=== PATIENT | female | born 1980 | race Caucasian/White ===

== ENCOUNTER 2021-05-02 11:30 | Emergency (ER) | payer MEDICAID ==
[2021-05-02] MEDS ORDERED: SUMAtriptan 25 MG TABLET PO STA (11:48)
[2021-05-02] MEDS ORDERED: ONDANSETRON ODT 4 MG TABLET TL STA (12:19)
--- NOTE | 2021-05-02 12:23 | ED Physician Documentation ---
History of Present Illness - Stated complaint Stated Complaint: MIGRAINE - Chief complaint Chief Complaint: Neuro - Additonal information Additional information: 40-year-old female who is visiting the [place] for the iday pres ents with acute onset early headache with visual aura. She has a longstanding history of migraines. States that she typically will take Imitrex as an arresting medication however she has ran out and did not travel with any. There are no falls or trauma. No fevers. No history of CVA. Headache began about 15 minutes prior to arrival. She states that she does not get the resting medication promptly the headache will persist for days. 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 She has had previous arterial thrombectomy and is on Xarelto. Patient denies any falls or trauma. Patient is quite adamant that this headache is typical of her previous migraines. I did offer her in fact requested that she allow us to obtain a CT of her head but she declines at this time. Review of Systems Constitutional: denies: Fever, Chills Eyes: reports: Photophobia, Other (Visual aura photophobia). denies: Loss of vision Ears: reports: Reviewed and negative Nose: reports: Reviewed and negative Throat: reports: Reviewed and negative Cardiac: reports: Reviewed and negative Respiratory: reports: Reviewed and negative GI: reports: Nausea. denies: Abdominal Pain, Vomiting, Constipation, Diarrhea : reports: Reviewed and negative Skin: reports: Reviewed and negative Musculoskeletal: reports: Reviewed and negative PD PAST MEDICAL HISTORY - Past Medical History Past Medical History: Yes Cardiovascular: Deep vein thrombosis, Other Respiratory: Asthma Neuro: Migraines Endocrine/Autoimmune: None GI: Other PERSONNEL ASSOCIATE: None : Kidney stones Psych: Anxiety Musculoskeletal: None Derm: None - Past Surgical History Past Surgical History: Yes Cardiovascular: CABG, Vascular surgery - Present Medications Home Medications: Ambulatory Orders Medication Instructions Recorded Confirmed Aspirin [Aspirin EC] 81 mg PO DAILY 05/02/21 05/02/21 Atorvastatin [Lipitor] 0 mg ORAL DAILY 05/02/21 05/02/21 Ondansetron Odt [Zofran Odt] 4 mg TL Q6H PRN 05/02/21 05/02/21 Ondansetron Odt [Zofran] 4 mg TL Q6H PRN #10 tablet 05/02/21 Rivaroxaban [Xarelto] 20 mg PO DAILY 05/02/21 05/02/21 SUMAtriptan [Imitrex] 25 mg PO BID PRN #4 tablet 05/02/21 Sumatriptan Succinate [Imitrex] 100 mg PO DAILY PRN 05/02/21 05/02/21 - Allergies Allergies/Adverse Reactions: Allergies Allergy/AdvReac Type Severity Reaction Status Date / Time erythromycin base Allergy Cramps Verified 05/02/21 11:37 codeine AdvReac Nausea Verified 05/02/21 11:37 hydrocodone AdvReac Nausea Verified 05/02/21 11:37 - Social History Does the pt smoke?: Yes Smoking Status: Current every day smoker Does the pt drink ETOH?: No Does the pt have substance abuse?: No - Immunizations Immunizations are current?: No Immunizations: Other immun not current PD ED PE NORMAL - General General: Alert and oriented X 3, No acute distress, Well developed/nourished - HEENT HEENT: Atraumatic, EOMI, Ears normal, Moist mucous membranes, Pharynx benign - Neck Neck: Supple, no meningeal sign - Cardiac Cardiac: RRR, No murmur (Grade 2 systolic murmur left sternal border. Reports a history of VSD) - Respiratory Respiratory: No respiratory distress, Clear bilaterally - Abdomen Abdomen: Normal bowel sounds, Soft - Back Back: No CVA TTP, No spinal TTP - Derm Derm: Normal color, Warm and dry - Extremities Extremities: No deformity, No tenderness to palpate, No edema, Other (1+ peripheral pulses pedal. Warm feet without swelling. Brisk cap refill.). No: No calf tenderness / cord - Neuro Neuro: Alert and oriented X 3, silk soaker 2-12 intact, No motor deficit, No sensory deficit, Normal speech, Other (Normal gait, finger-nose and heel toe) Eye Opening: Spontaneous Motor: Obeys Commands Verbal: Oriented GCS Score: 15 Results - Vitals Vitals: Vital Signs - 24 hr 05/02/21 11:37 Temperature 36.9 C Heart Rate 64 Respiratory 18 Rate Blood Pressure 146/79 H O2 Saturation 100 Oxygen O2 Source Room air PD MEDICAL DECISION MAKING - ED course Complexity details: reviewed results, re-evaluated patient, considered differential, d/w patient ED course: 40-year-old female who has a history of migraines presents the emergency department with acute onset headache, photophobia and visual aura. She is out of her Imitrex and is traveling here to the [place] for the holiday. Patient was given 100 mg of Imitrex which she reports as her typical dose. Immediately following this she began to have reduction in the headache, improved nausea and the visual aura/photophobia had dissipated. She does have a history of previous lower extremity arterial thrombectomy and is on Xarelto. We discussed that though this headache presents as a typical migraine given the presence of anticoagulation a CT scan should be considered and offered to rule out any findings of intracranial hemorrhage. However patient declined CT imaging. She states that she has had no falls or trauma and she felt better with the Imitrex. I reiterated that if her headache did not improve upon discharge she is to return immediately to the ER for reevaluation. Patient will be prescribed some Imitrex as well as Zofran in case her headache should return well residing here in the [place] for the next few weeks. Otherwise emergent return precautions discussed. Departure - Departure Disposition: 01 Home, Self Care Clinical Impression: Anticoagulated Migraine Qualifiers: Migraine type: with aura Status migrainosus presence: without status migrainosus Intractability: not intractable Qualified Code(s): G43.109 - Migraine with aura, not intractable, without status migrainosus Condition: Stable Record reviewed to determine appropriate education?: Yes Instructions: ED Headache Migraine Prescriptions: SUMAtriptan [Imitrex] 25 mg PO BID PRN #4 tablet PRN Reason: Headache Ondansetron Odt [Zofran] 4 mg TL Q6H PRN #10 tablet PRN Reason: Nausea / Vomiting Comments: Florecita ferguson are seen in the emergency department today for headache and aura which is typical of your previous migraines. You were given 100 mg of Imitrex here in the ER which has started to resolve your symptoms. A prescription for Imitrex as well as Zofran to help with nausea has been sent to the [facility] pharmacy. Because you have a history of arterial thrombus and are are anticoagulated on Xarelto we did offer you a CAT scan of your head to ensure that the cause of the headache was not due to bruising or bleeding within the brain. You declined that at this time. Therefore if your headache does not improve or returns with increased severity you are to return immediately to the ER for a second evaluation.
[2021-05-02 12:41] VITALS: BP 139/94
== END 2021-05-02 12:44 | disposition home or self-care (01) ==
LOC: ED 11:30
DX: G43.109 Migraine with aura, not intractable, without status migrainosus (principal); Z86.718 Personal history of other venous thrombosis and embolism; Z79.01 Long term (current) use of anticoagulants; F17.200 Nicotine dependence, unspecified, uncomplicated
CPT/HCPCS: 99282; 99283; A9270; Q0162